=== PATIENT | female | born 1975 | race Caucasian/White ===

== ENCOUNTER → 2017-01-15 | Outpatient (CLI) | payer OTHER ==
[2017-01-15 14:53] LABS: HEMOGLOBIN 12.9 gm/dl (12.3-15.3); RED BLOOD COUNT 4.34 M/UL (4.00-5.10); WHITE BLOOD COUNT 5.2 K/UL (4.5-11.0)
[2017-01-15 15:34] LABS: BUN/CREATININE RATIO 13 (0-10)
== END ==
LOC: LAB 13:28
PROVIDERS: Dermatology
DX: L40.0 Psoriasis vulgaris (principal); L40.1 Generalized pustular psoriasis
CPT/HCPCS: 36415; 80053; 80074; 82248; 85027; 87390

== ENCOUNTER → 2017-01-17 | Outpatient (CLI) | payer OTHER | LOC: RAD 10:40 | DX: L40.0 Psoriasis vulgaris (principal); L40.1 Generalized pustular psoriasis | CPT/HCPCS: 71020 ==

== ENCOUNTER 2017-03-17 09:21 | Emergency (ER) | payer OTHER | END 2017-03-17 11:15 | disposition home or self-care (01) | LOC: ER1 09:21 | DX: S91.341A Puncture wound with foreign body, right foot, initial encounter (principal); W25.XXXA Contact with sharp glass, initial encounter; Y92.009 Unspecified place in unspecified non-institutional (private) residence as the place of occurrence of the external cause | CPT/HCPCS: 73630; 90471; 90715; 99283 ==

== ENCOUNTER → 2021-11-13 | Outpatient (CLI) | payer BC | LOC: HEART 5 09:20 | DX: R00.1 Bradycardia, unspecified (principal) ==

== ENCOUNTER → 2022-01-27 | Outpatient (CLI) | payer BC | LOC: HEART 5 09:37 | DX: R00.1 Bradycardia, unspecified (principal); I08.1 Rheumatic disorders of both mitral and tricuspid valves | CPT/HCPCS: 93306 ==